=== PATIENT | male | born 1995 ===

== ENCOUNTER 2019-10-27 20:53 | Outpatient (CLI) | payer MEDICAID | END 2019-10-27 20:54 | disposition EMS.NT | LOC: EMS 20:53 | PROVIDERS: ATTEND Surgery | DX: S21.142A Puncture wound with foreign body of left front wall of thorax without penetration into thoracic cavity, initial encounter (principal); Y35.833A Legal intervention involving a conducted energy device, suspect injured, initial encounter ==